=== PATIENT | female | born 1985 | race American Indian/Alaskan Native ===

== ENCOUNTER 2016-06-30 09:58 | Outpatient (CLI) | payer OTHER ==
--- NOTE | 2016-06-30 10:38 | XRay Report ---
ROUTINE CHEST, TWO VIEWS: HISTORY: Sleep apnea, shortness of breath. The trachea, heart, mediastinal contour, lung allen and bony thorax are unremarkable. IMPRESSION: Unremarkable chest x-ray.
== END 2016-06-30 09:59 | disposition home or self-care (01) ==
LOC: CARD 09:58
PROVIDERS: ATTEND Internal Medicine
DX: G47.30 Sleep apnea, unspecified (principal); R06.02 Shortness of breath
CPT/HCPCS: 71020; 93005; 93010